=== PATIENT | male | born 2000 | race Caucasian/White ===

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

== ENCOUNTER 2021-01-12 12:57 | Emergency (ER) | payer OTHER ==
[~2021-01-12] VITALS: Ht 188 cm; Wt 72.7 kg
[2021-01-12 13:11] VITALS: BP 126/44
[2021-01-12] MEDS ORDERED: NALOXONE 0.4 MG/ML VIAL. ONE (13:22)
--- NOTE | 2021-01-12 13:32 | PHYS DOC ---
Past History Past Medical History: No Pertinent History Past Surgical History: No Surgical History Alcohol Use: None General Adult EDM: Chief Complaint: HEAD, FACE, NECK, TRAUMA HPI: HPI: Patient is a 20-year-old male who presents with abrasion to top of head and neck pain after a fall. Patient states he was running down some stairs at work and jumped to get to the bottom of the stairs. Patient states that when he jumped, he hit his head on ceiling. Patient states after he hit his head he fell backwards onto his butt. Denies loss of consciousness. Patient is reporting a headache and neck pain. Patient denies dizziness, nausea/vomiting. GCS of 15. Patient denies taking anything for pain prior to arrival. Patient denies being on blood thinners. Denies any health history. Up-to-date on immunizations. Review of Systems: Review of Systems: Constitutional: Denies fever or chills Eyes: Denies change in visual acuity HENT: Denies nasal congestion or sore throat Respiratory: Denies cough or shortness of breath Cardiovascular: Denies chest pain or edema GI: Denies abdominal pain, nausea, vomiting, bloody stools or diarrhea : Denies dysuria Musculoskeletal: Denies back pain, reports neck pain Integument: Abrasion to top of head Neurologic: Reports headache. Denies focal weakness or sensory changes Endocrine: Denies polyuria or polydipsia Lymphatic: Denies swollen glands Psychiatric: Denies depression or anxiety Current Medications: Current Meds: Current Medications Medications (Trade) Dose Ordered Sig/[facility] Start Time Stop Time Status Last Admin Dose Admin Naloxone HCl (Narcan) 0.4 mg STK-MED ONCE 01/12/21 13:22 01/12/21 13:23 DC Allergies: Allergies: Allergies Coded Allergies Type Severity Reaction Last Updated Verified No Known Drug Allergies 01/12/21 No Physical Exam: PE: Constitutional: Well developed, well nourished, no acute distress, non-toxic appearance. [] HENT: Normocephalic, atraumatic, bilateral external ears normal, oropharynx moist, no oral exudates, nose normal. [] Eyes: PERRLA, EOMI, conjunctiva normal, no discharge. [] Neck: Normal range of motion, right-sided tenderness Cardiovascular:Heart rate regular rhythm, no murmur [] Lungs & Thorax: Bilateral breath sounds clear to auscultation [] Abdomen: Bowel sounds normal, soft, no tenderness, no masses, no pulsatile masses. [] Skin: Warm, dry, no erythema, no rash. [] Back: No tenderness, no CVA tenderness. [] Extremities: No tenderness, no cyanosis, no clubbing, ROM intact, no edema. [] Neurologic: Alert and oriented X 3, normal motor function, normal sensory func tion, no focal deficits noted. [] Psychologic: Affect normal, judgement normal, mood normal. [] Current Patient Data: Vital Signs: Vital Signs Date Time Temp Pulse Resp B/P (MAP) Pulse Ox O2 Delivery O2 Flow Rate FiO2 01/12/21 13:11 97.5 66 18 126/44 (71) 97 Room Air EKG: EKG: [] Radiology/Procedures: Radiology/Procedures: []EXAM: CT Head without IV contrast INDICATION: Reason: hit head, fall / Spl. Instructions: / History: TECHNIQUE: Multi-detector row CT images were obtained of the head without the use of IV contrast. All CT scans performed at this facility utilize dose optimization techniques as appropriate to the exam, including the following: Automated exposure control and adjustment of the mA and/or KV according to patient size (this includes techniques or standardized protocols for targeted exams where dose is indication/reason for exam). COMPARISON: None FINDINGS: BRAIN PARENCHYMA: No evidence of acute intraparenchymal hemorrhage or infarct. No abnormal parenchymal density or mass. VENTRICLES & EXTRA-AXIAL SPACES: Ventricles are within normal limits. Basilar cisterns are patent. No pathologic extra-axial fluid collection or mass. ORBITS: Orbital contents are unremarkable. SINUSES: Visualized paranasal sinuses and mastoid air cells are clear. OSSEOUS & SOFT TISSUES: Calvarium and skull base are intact. IMPRESSION: Unremarkable CT of the head without contrast. EXAM: CT Cervical Spine without IV contrast INDICATION: Reason: hit head, fall / Spl. Instructions: / History: TECHNIQUE: Multi-detector row CT images were obtained through the cervical spine without the use of IV contrast. Post-processing sagittal and coronal reconstructed images were obtained for interpretation. All CT scans performed at this facility utilize dose optimization techniques as appropriate to the exam, including the following: Automated exposure control and adjustment of the mA and/or KV according to patient size (this includes techniques or standardized protocols for targeted exams where dose is indication/reason for exam). COMPARISON: None FINDINGS: CRANIOCERVICAL JUNCTION: Unremarkable. ALIGNMENT: Alignment is within normal limits. OSSEOUS: No evidence of fracture or bone destruction. DISC SPACES: Unremarkable. FACET JOINTS: Unremarkable. SPINAL CANAL: Unremarkable. NEUROFORAMINA: Unremarkable. SOFT TISSUES: Unremarkable. IMPRESSION: Normal CT of the cervical spine. Electronically signed by: Lynnette Winn MD (01/12/2021 1:52 PM) [id number] DICTATED AND SIGNED BY: LYNNETTE WINN MD DATE: 01/12/21 1347 CC: CASSIDY COTE MD; YANI SÁNCHEZE MEASURING MACHINE OPERATOR ~MTH0 0 Heart Score: C/O Chest Pain: No Risk Factors: Risk Factors: DM, Current or recent (<one month) smoker, HTN, HLP, family history of CAD, obesity. Risk Scores: Score 0 - 3: 2.5% MACE over next 6 weeks - Discharge Home Score 4 - 6: 20.3% MACE over next 6 weeks - Admit for Clinical Observation Score 7 - 10: 72.7% MACE over next 6 weeks - Early Invasive Strategies Course & Med Decision Making: Course & Med Decision Making Pertinent Labs and Imaging studies reviewed. (See chart for details) [] CT of head and neck ordered to rule out intercranial hemorrhage. GCS of 15. Patient is alert and orientated x4. Patient reporting headache and neck tenderness. Denies back pain. Denies loss of consciousness. Patient denying anything for pain at this time. Immunizations are up-to-date. CT of head and neck are negative for intracranial hemorrhage or fracture. Patient given instructions to return to the emergency room with worsening symptoms such as altered mental status, vomiting, increase in pain. Patient can take ibuprofen at home for discomfort. Patient's vitals are stable. GCS of 15 at discharge. Patient is ready to be discharged Dragon Disclaimer: Dragon Disclaimer: This electronic medical record was generated, in whole or in part, using a voice recognition dictation system. Departure Departure: Impression: Primary Impression: Head injury, acute, without loss of consciousness Qualified Codes: S09.90XA - Unspecified injury of head, initial encounter Disposition: 01 DC HOME SELF CARE/HOMELESS Condition: STABLE Referrals: CASSIDY COTE MD (PCP) Patient Instructions: Head Injury, Adult, [id number] Additional Instructions: You were seen in the emergency room for headache and neck pain after a fall at work today. The CT of your head and neck were both negative for any acute abnormalities. You can take ibuprofen at home for pain and use ice to areas of discomfort. Please return to the emergency room with worsening symptoms or c oncerns. Otherwise may follow-up with your PCP. EMERGENCY DEPARTMENT GENERAL DISCHARGE INSTRUCTIONS Thank you for coming to [facility] (ED) today and trusting us with you care. We trust that you had a positivie experience in our Emergency Department. If you wish to speak to the department management, you may call the director at [phone]. YOUR FOLLOW UP INSTRUCTIONS ARE FOLLOWS: 1. Do you have a private Doctor? If you do not have a private doctor, please ask for a resource list of physicians or clinics that may be able to assist you with follow up care. 2. The Emergency Physician has interpreted your x-rays. The X-Ray specialist will also review them. If there is a change in the findings, you will be notified in 48 hours when at all possible. 3. A lab test or culture has been done, your results will be reviewed and you will be notified if you need a change in treatment. ADDITIONAL INSTRUCTIONS AND INFORMATION: 1. Your care today has been supervised by a physician who is specially trained in emergency care. Many problems require more than one evaluation for a complete diagnosis and treatment. We recommend that you schedule your follow up appointment as recommended to ensure complete treatment of you illness or injury. If you are unable to obtain follow up care and continue to have a problem, or if your condition worsens, we recommend that you return to the ED. 2. We are not able to safely determine your condition over the phone nor are we able to give sound medical advice over the phone. For these safety reasons, if you call for medical advice we will ask you to come to the ED for further evaluation. 3. If you have any questions regarding these discharge instructions please call the ED at [phone]. SAFETY INFORMATION: In the interest of safety, wellness, and injury prevention; we encourage you to wear your sealbelt, if you smoke; quite smoking, and we encourage family to use a protective helmet for bicycling and other sporting events that present an increased risk for head injury. IF YOUR SYMPTOMS WORSEN OR NEW SYMPTOMS DEVELOP, OR YOU HAVE CONCERNS ABOUT YOUR CONDITION; OR IF YOUR CONDITION WORSENS WHILE YOU ARE WAITING FOR YOUR FOLLOW UP APPOINTMENT; EITHER CONTACT YOUR PRIMARY CARE DOCTOR, THE PHYSICIAN WHOSE NAME AND NUMBER YOU WERE GIVEN, OR RETURN TO THE ED IMMEDIATELY. MANOJ SÁNCHEZ APRN Jan 12, 2021 13:32
--- NOTE | 2021-01-12 13:55 | RAD ---
EXAM: CT Head without IV contrast INDICATION: Reason: hit head, fall / Spl. Instructions: / History: TECHNIQUE: Multi-detector row CT images were obtained of the head without the use of IV contrast. All CT scans performed at this facility utilize dose optimization techniques as appropriate to the exam, including the following: Automated exposure control and adjustment of the mA and/or KV according to patient size (this includes techniques or standardized protocols for targeted exams where dose is ind ication/reason for exam). COMPARISON: None FINDINGS: BRAIN PARENCHYMA: No evidence of acute intraparenchymal hemorrhage or infarct. No abnormal parenchyma l density or mass. VENTRICLES & EXTRA-AXIAL SPACES: Ventricles are within normal limits. Basilar cisterns are patent. N o pathologic extra-axial fluid collection or mass. ORBITS: Orbital contents are unremarkable. SINUSES: Visualized paranasal sinuses and mastoid air cells are clear. OSSEOUS & SOFT TISSUES: Calvarium and skull base are intact. IMPRESSION: Unremarkable CT of the head without contrast. EXAM: CT Cervical Spine without IV contrast INDICATION: Reason: hit head, fall / Spl. Instructions: / History: TECHNIQUE: Multi-detector row CT images were obtained through the cervical spine without the use of IV contrast. Post-processing sagittal and coronal reconstructed images were obtained for interpretati on. All CT scans performed at this facility utilize dose optimization techniques as appropriate to th e exam, including the following: Automated exposure control and adjustment of the mA and/or KV accord ing to patient size (this includes techniques or standardized protocols for targeted exams where dose is indication/reason for exam). COMPARISON: None FINDINGS: CRANIOCERVICAL JUNCTION: Unremarkable. ALIGNMENT: Alignment is within normal limits. OSSEOUS: No evidence of fracture or bone destruction. DISC SPACES: Unremarkable. FACET JOINTS: Unremarkable. SPINAL CANAL: Unremarkable. NEUROFORAMINA: Unremarkable. SOFT TISSUES: Unremarkable. IMPRESSION: Normal CT of the cervical spine. Electronically signed by: Lakesha Winn MD (01/12/2021 1:52 PM) [id number]
== END 2021-01-12 14:34 | disposition left against medical advice (07) ==
LOC: ER 12:57
DX: S00.01XA Abrasion of scalp, initial encounter (principal); W18.09XA Striking against other object with subsequent fall, initial encounter; Y93.02 Activity, running; Y92.89 Other specified places as the place of occurrence of the external cause; Y99.8 Other external cause status
CPT/HCPCS: 70450; 72125; 99285-25

== ENCOUNTER 2021-02-07 09:24 | Emergency (ER) | payer OTHER ==
[~2021-02-07] VITALS: Ht 188 cm; Wt 70.4 kg
--- NOTE | 2021-02-07 10:19 | RAD ---
EXAM: CHEST 2 VIEWS. HISTORY: Lymphadenopathy. COMPARISON: 11/27/2014. FINDINGS: Frontal and lateral views of the chest are obtained. There are no confluent infiltrates. There is no pneumothorax or pleural effusion. The heart is not en larged. The cardiomediastinal silhouette is unremarkable and stable. IMPRESSION: 1. No confluent infiltrates. No radiographic correlate for lymphadenopathy. CT is more sensitive if t here is persistent concern. Electronically signed by: Nhan Schultz MD (02/07/2021 10:17 AM) [facility]
[2021-02-07 10:38] LABS: BASO % 0 % (0-3); EOS % 1 % (0-3); HEMATOCRIT 49.1 % (39.0-53.0); HEMOGLOBIN 16.7 g/dL (13.0-17.5); LYMPH # 1.5 x10^3/uL (1.0-4.8); LYMPH % 18 % (24-48); MEAN CORPUSCULAR HEMOGLOBIN 31 pg (25-35); MEAN CORPUSCULAR HGB CONC 34 g/dL (31-37); MEAN CORPUSCULAR VOLUME 91 fL (79-100); MONO # 0.6 x10^3/uL (0.0-1.1); MONO % 8 % (0-9); NEUT # 5.8 x10^3uL (1.8-7.7); NEUT % 73 % (31-73); PLATELET COUNT 138 x10^3/uL (140-400); RED BLOOD COUNT 5.41 x10^6/uL (4.30-5.70)
[2021-02-07 10:48] LABS: MONONUCLEOSIS PATIENT POSITIVE (NEGATIVE)
--- NOTE | 2021-02-07 10:57 | PHYS DOC ---
Past History Past Medical History: No Pertinent History Past Surgical History: No Surgical History Alcohol Use: None Adult General Chief Complaint Chief Complaint: SORE THROAT HPI HPI Patient is a 20-year-old male who presents to the emergency room with multiple complaints. Patient is complaining of some neck swelling and pain. He states that he has been having groin swelling with lymphadenopathy in his groin for the last 2 months. Does primary care doctor for this who placed him on antibiotics. He did not take the antibiotics and lost them. He states he does not know what they were treating him for. He denies any penile discharge. He has had some mild fatigue but denies any kind of bruising. He denies any cough, fever, c hills, sweats. He is not having any difficulty with swallowing. Review of Systems Review of Systems Complete ROS is negative unless otherwise documented in HPI Allergies Allergies Allergies Coded Allergies Type Severity Reaction Last Updated Verified No Known Drug Allergies 01/12/21 No Physical Exam Physical Exam General: Awake, alert, NAD. Well Nourished, well hydrated. Cooperative HEENT: Atraumatic, EOMI, PERRL, airway patent, moist oral mucosa, minimal tonsillar swelling Neck: Supple, trachea midline, cervical lymphadenopathy Respiratory: CTA bilaterally, normal effort, no wheezing/crackles CV: RRR, no murmur, cap refill <2 GI: Soft, nondistended, nontender, no masses MSK: No obvious deformities Skin: Warm, dry, intact, no axillary lymphadenopathy Neuro: A&O x3, speech NL, sensory and motor grossly intact, no focal deficits Psych: Normal affect, normal mood, not suicidal or homicidal Current Patient Data Vital Signs Vital Signs Date Time Temp Pulse Resp B/P (MAP) Pulse Ox O2 Delivery O2 Flow Rate FiO2 02/07/21 09:34 97.7 82 16 119/80 (93) 99 Room Air Lab Results Laboratory Tests Test 02/07/21 10:12 White Blood Count 8.0 x10^3/uL (4.0-11.0) Red Blood Count 5.41 x10^6/uL (4.30-5.70) Hemoglobin 16.7 g/dL (13.0-17.5) Hematocrit 49.1 % (39.0-53.0) Mean Corpuscular Volume 91 fL (79-100) Mean Corpuscular Hemoglobin 31 pg (25-35) Mean Corpuscular Hemoglobin Concent 34 g/dL (31-37) Red Cell Distribution Width 14.0 % (11.5-14.5) Platelet Count 138 x10^3/uL (140-400) L Neutrophils (%) (Auto) 73 % (31-73) Lymphocytes (%) (Auto) 18 % (24-48) L Monocytes (%) (Auto) 8 % (0-9) Eosinophils (%) (Auto) 1 % (0-3) Basophils (%) (Auto) 0 % (0-3) Neutrophils # (Auto) 5.8 x10^3uL (1.8-7.7) Lymphocytes # (Auto) 1.5 x10^3/uL (1.0-4.8) Monocytes # (Auto) 0.6 x10^3/uL (0.0-1.1) Eosinophils # (Auto) 0.0 x10^3/uL (0.0-0.7) Basophils # (Auto) 0.0 x10^3/uL (0.0-0.2) Heterophil Agglutinins Positive (NEGATIVE) EKG EKG [] Radiology/Procedures Radiology/Procedures [] Heart Score C/O Chest Pain: N/A Risk Factors: Risk Factors: DM, Current or recent (<one month) smoker, HTN, HLP, family history of CAD, obesity. Risk Scores: Risk Factors: DM, Current or recent (<one month) smoker, HTN, HLP, family history of CAD, obesity. Course & Med Decision Making Course & Med Decision Making Pertinent Labs and Imaging studies reviewed. (See chart for details) Patient is a 20-year-old male who presents to the emergency room complaining of neck soreness and swelling. Patient does have cervical lymphadenopathy. He also has been having lymphadenopathy in his groin. It is possible that this could be due to 2 separate infections. Differential diagnosis includes gonorrhea/chlamydia, mono, lymphoma, viral infection. We will do a CBC to evaluate for any abnormalities that would be suggestive of mono or lymphoma. X- ray was done which does not show any obvious lymphadenopathy. CBC does not show any major abnormalities. Gonorrhea chlamydia was sent off and patient will be called with these results. A strep was negative. [place] test was positive. The symptoms are likely due to mono. I have discussed with him that he needs to follow-up in 2 weeks if symptoms have not resolved. We will place him on steroids. Patient's test results and vitals while in the ED were fully reviewed and discussed with the patient. Patient is stable and at this time does not need admission to the hospital. We have discussed strict return precautions and the importance of following up with their Primary Care Physician. Patient stated understanding and was given an opportunity to ask any questions. Patient is in agreement with plan. Dragon Disclaimer Dragon Disclaimer This electronic medical record was generated, in whole or in part, using a voice recognition dictation system. Departure Departure: Impression: Primary Impression: Mononucleosis Additional Impression: Lymphadenopathy Disposition: HOME / SELF CARE / HOMELESS Condition: STABLE Referrals: CASSIDY COTE MD (PCP) In 2 weeks Patient Instructions: Infectious Mononucleosis Scripts Methylprednisolone (MEDROL) 4 Mg Tab.ds.pk 1 PKG PO UD for mono, #1 PKG Prov: KRYSTA MOSES MD 02/07/21 Problem Qualifiers KRYSTA MOSES MD Feb 07, 2021 10:56
[2021-02-07] MEDS ORDERED: METH4TAB2 PO (11:19)
[2021-02-07 11:39] VITALS: BP 118/78
== END 2021-02-07 11:39 | disposition home or self-care (01) ==
LOC: ER 09:24
DX: B27.90 Infectious mononucleosis, unspecified without complication (principal); R59.1 Generalized enlarged lymph nodes
CPT/HCPCS: 36415; 71046; 85025; 86308; 87070; 87491; 87591; 87880; 99284

== ENCOUNTER 2021-02-11 10:18 | Emergency (ER) | payer OTHER ==
[~2021-02-11] VITALS: Ht 188 cm; Wt 67.8 kg
[~2021-02-11 10:18] MED LIST: METH4TAB2 PO
[2021-02-11 10:25] VITALS: BP 136/75
--- NOTE | 2021-02-11 11:22 | PHYS DOC ---
Past History Past Medical History: Anxiety, Bipolar, Depression Past Surgical History: No Surgical History Additional Smoking Information: 1/2 PACK Alcohol Use: None General Adult EDM: Chief Complaint: PSYCH EVALUATION HPI: HPI: Patient is a 20 M ever seen with mom for worsening psychiatric problems. Patient has a history of bipolar disorder but has been acting more aggressive. Has not had any acts of aggression towards people and denies any homicidal i deation, but did punch a wall. Has had passive suicidal thoughts without a plan to actually intent to harm himself. Patient has not been on his medications for approximately 4 months. Patient initially said he had not had not had any medication for an 18-month stating his been 4 months. Has a follow-up appointment with the [facility] for medication evaluation in 2 weeks. Was trying to cut his arm with his keys earlier which is why mom brought him in now. No history of suicide attempts. Denies any hallucinations Review of Systems: Review of Systems: Constitutional: Denies fever or chills Eyes: Denies change in visual acuity HENT: Denies nasal congestion or sore throat Respiratory: Denies cough or shortness of breath Cardiovascular: Denies chest pain or edema GI: Denies abdominal pain, nausea, vomiting, bloody stools or diarrhea : Denies dysuria Musculoskeletal: Denies back pain or joint pain Integument: Denies rash Neurologic: Denies headache, focal weakness or sensory changes Endocrine: Denies polyuria or polydipsia Lymphatic: Denies swollen glands Psychiatric: Denies depression or anxiety Allergies: Allergies: Allergies Coded Allergies Type Severity Reaction Last Updated Verified No Known Drug Allergies 01/12/21 No Physical Exam: PE: Constitutional: Well developed, well nourished, no acute distress, non-toxic appearance. [] HENT: Normocephalic, atraumatic, bilateral external ears normal, oropharynx moist, no oral exudates, nose normal. [] Eyes: PERRLA, EOMI, conjunctiva normal, no discharge. [] Neck: Normal range of motion, no tenderness, supple, no stridor. [] Cardiovascular:Heart rate regular rhythm, no murmur [] Lungs & Thorax: Bilateral breath sounds clear to auscultation [] Abdomen: Bowel sounds normal, soft, no tenderness, no masses, no pulsatile masses. [] Skin: Warm, dry, no erythema, no rash. [] Back: No tenderness, no CVA tenderness. [] Extremities: No tenderness, no cyanosis, no clubbing, ROM intact, no edema. [] Neurologic: Alert and oriented X 3, normal motor function, normal sensory function, no focal deficits noted. [] Psychologic: Affect normal, judgement normal, mood normal. [] Current Patient Data: Vital Signs: Vital Signs Date Time Temp Pulse Resp B/P (MAP) Pulse Ox O2 Delivery O2 Flow Rate FiO2 02/11/21 10:25 98.2 72 20 136/75 (95) 98 Room Air EKG: EKG: [] Radiology/Procedures: Radiology/Procedures: [] Heart Score: C/O Chest Pain: No Risk Factors: Risk Factors: DM, Current or recent (<one month) smoker, HTN, HLP, family history of CAD, obesity. Risk Scores: Score 0 - 3: 2.5% MACE over next 6 weeks - Discharge Home Score 4 - 6: 20.3% MACE over next 6 weeks - Admit for Clinical Observation Score 7 - 10: 72.7% MACE over next 6 weeks - Early Invasive Strategies Course & Med Decision Making: Course & Med Decision Making Pertinent Labs and Imaging studies reviewed. (See chart for details) PAT evaluation, patient accepted to [facility]. Pending transport at 1900 when a bed available. [] Dragon Disclaimer: Dragon Disclaimer: This electronic medical record was generated, in whole or in part, using a voice recognition dictation system. Departure Departure: Impression: Primary Impression: Suicidal thoughts Additional Impression: Nonadherence to medication [facility] Condition: STABLE Referrals: CASSIDY COTE MD (PCP) CRICKET SHORE MD Feb 11, 2021 11:22
[2021-02-11 11:37] LABS: BASO % 0 % (0-3); EOS % 1 % (0-3); HEMATOCRIT 45.4 % (39.0-53.0); HEMOGLOBIN 15.5 g/dL (13.0-17.5); LYMPH # 2.1 x10^3/uL (1.0-4.8); LYMPH % 29 % (24-48); MEAN CORPUSCULAR HEMOGLOBIN 31 pg (25-35); MEAN CORPUSCULAR HGB CONC 34 g/dL (31-37); MEAN CORPUSCULAR VOLUME 91 fL (79-100); MONO # 0.6 x10^3/uL (0.0-1.1); MONO % 8 % (0-9); NEUT # 4.5 x10^3uL (1.8-7.7); NEUT % 62 % (31-73); PLATELET COUNT 155 x10^3/uL (140-400); RED BLOOD COUNT 5.01 x10^6/uL (4.30-5.70); RED CELL DISTRIBUTION WIDTH 13.7 % (11.5-14.5); WHITE BLOOD COUNT 7.2 x10^3/uL (4.0-11.0)
[2021-02-11 11:45] LABS: BILIRUBIN,URINE NEG (NEG); CLARITY,URINE CLEAR; COLOR,URINE YELLOW; GLUCOSE,URINE NEG (NEG); NITRITE,URINE NEG (NEG)
[2021-02-11 11:49] LABS: BACTERIA,URINE FEW /HPF (0-FEW); RBC,URINE RARE /HPF (0-2)
[2021-02-11 11:49] LABS: CALCIUM 8.9 mg/dL (8.5-10.1); CREATININE 0.7 mg/dL (0.7-1.3); GFR 145.3; POTASSIUM 3.5 mmol/L (3.5-5.1)
[2021-02-11 11:50] LABS: SQUAMOUS EPITHELIAL CELL,UR OCC /LPF
[2021-02-11 11:52] LABS: SALIC < 2.8 mg/dL (2.8-20.0)
[2021-02-11 11:53] LABS: ACETAMIN < 2.0 mcg/mL (10-30); ETHANOL < 10 mg/dL (0-10)
[2021-02-11 11:55] LABS: ALBUMIN 3.9 g/dL (3.4-5.0); ALBUMIN/GLOBULIN RATIO 1.4 (1.0-1.7); MAGNESIUM 1.8 mg/dL (1.8-2.4); TOTAL PROTEIN 6.7 g/dL (6.4-8.2)
[2021-02-11 12:00] LABS: BARBITURATES NEG (NEG); BENZODIAZEPINES NEG (NEG); CANNABINOIDS POS (NEG); COCAINE NEG (NEG); METHADONE NEG (NEG); OPIATES NEG (NEG); PHENCYCLIDINE NEG (NEG)
[2021-02-11 12:01] LABS: AMPHETAMINE/METHAMPHETAMINE NEG (NEG)
[2021-02-11] MEDS ORDERED: hydrOXYzine HCL 25 MG TABLET PO PRN (14:00)
[2021-02-11] MEDS ORDERED: LORazepam 1 MG TABLET PO ONE (16:15)
== END 2021-02-11 20:25 ==
LOC: ER 10:18
DX: R45.851 Suicidal ideations (principal); Z91.14 Patient's other noncompliance with medication regimen; F41.9 Anxiety disorder, unspecified; F31.9 Bipolar disorder, unspecified; F17.200 Nicotine dependence, unspecified, uncomplicated; Z20.822 Contact with and (suspected) exposure to COVID-19
CPT/HCPCS: 36415; 80053; 80307; 80329; 81001; 83735; 85025; 87426; 99285; G0480; U0003

== ENCOUNTER 2021-04-03 14:31 | Emergency (ER) | payer OTHER ==
[~2021-04-03] VITALS: Ht 188 cm; Wt 68.0 kg
[2021-04-03] MEDS ORDERED: CHARCOAL AQUA 25 GM/120 ML SUSPENSION. PO ONE (14:45)
--- NOTE | 2021-04-03 14:53 | PHYS DOC ---
Past History Past Medical History: Anxiety, Bipolar, Depression Past Surgical History: No Surgical History Alcohol Use: None General Adult EDM: Chief Complaint: OVERDOSE HPI: HPI: 20-year-old male presents after taking a bottle of lamotrigine 25 mg tablets. The patient believes that he took 40 of them at 1345. His mom tells me that she filled the prescription for 60 about a week ago. The patient is only on 25 mg a day currently. He tells me that he took it because he was having a specific conflict with a girl. He immediately regretted it and states that he does not want to at this time. He regrets his attempt at suicide. Mom states that the patient has been doing impulsive findings lately as a result of this girl. Patient denies any complaints. Review of Systems: Review of Systems: Constitutional: Denies fever or chills Eyes: Denies change in visual acuity HENT: Denies nasal congestion or sore throat Respiratory: Denies cough or shortness of breath Cardiovascular: Denies chest pain or edema GI: Denies abdominal pain, nausea, vomiting, bloody stools or diarrhea : Denies dysuria Musculoskeletal: Denies back pain or joint pain Integument: Denies rash Neurologic: Denies headache, focal weakness or sensory changes Endocrine: Denies polyuria or polydipsia Lymphatic: Denies swollen glands Psychiatric: Impulsive Current Medications: Current Meds: Current Medications Medications (Trade) Dose Ordered Sig/Swati Start Time Stop Time Status Last Admin Dose Admin Charcoal (Actidose-Aqua) 25 gm 1X ONCE 04/03/21 14:45 04/03/21 14:47 DC 04/03/21 14:48 25 GM Allergies: Allergies: Allergies Coded Allergies Type Severity Reaction Last Updated Verified No Known Drug Allergies 01/12/21 No Physical Exam: PE: Constitutional: Well developed, well nourished, no acute distress, non-toxic appearance. [] HENT: Normocephalic, atraumatic, bilateral external ears normal, oropharynx moist, no oral exudates, nose normal. [] Eyes: PERRLA, EOMI, conjunctiva normal, no discharge. [] Neck: Normal range of motion, no tenderness, supple, no stridor. [] Cardiovascular: Heart rate regular rhythm, no murmur [] Lungs & Thorax: Bilateral breath sounds clear to auscultation [] Abdomen: Bowel sounds normal, soft, no tenderness, no masses, no pulsatile masses. [] Skin: Warm, dry, no erythema, no rash. [] Back: No tenderness, no CVA tenderness. [] Extremities: No tenderness, no cyanosis, no clubbing, ROM intact, no edema. [] Neurologic: Alert and oriented X 3, normal motor function, normal sensory function, no focal deficits noted. [] Psychologic: Affect normal, judgement questionable, mood normal. [] EKG: EKG: [] Radiology/Procedures: Radiology/Procedures: [] Heart Score: C/O Chest Pain: N/A Risk Factors: Risk Factors: DM, Current or recent (<one month) smoker, HTN, HLP, family history of CAD, obesity. Risk Scores: Score 0 - 3: 2.5% MACE over next 6 weeks - Discharge Home Score 4 - 6: 20.3% MACE over next 6 weeks - Admit for Clinical Observation Score 7 - 10: 72.7% MACE over next 6 weeks - Early Invasive Strategies Course & Med Decision Making: Course & Med Decision Making Pertinent Labs and Imaging studies reviewed. (See chart for details) The patient's labs are unremarkable. His urine drug screen is positive for marijuana. His other toxicology for acetaminophen and salicylates is negative. The patient has been observed for more than 4 hours since he took his medication. The peak for lamotrigine is 3 to 4 hours. He has had 0 symptoms since he has been here. I question whether not the patient really took the medication he states that he took. The patient has been evaluated by the PAT team and they have determined he can go home with family and a safety plan. He is stable for discharge at this time. [] Dragon Disclaimer: Dragon Disclaimer: This electronic medical record was generated, in whole or in part, using a voice recognition dictation system. Departure Departure: Impression: Primary Impression: Intentional drug overdose Qualified Codes: T50.902A - Poisoning by unspecified drugs, medicaments and biological substances, intentional self-harm, initial encounter Disposition: HOME / SELF CARE / HOMELESS Condition: STABLE Referrals: CASSIDY COTE MD (PCP) Patient Instructions: Suicidal Feelings, How to Help Yourself SAMMY PEREZ DO Apr 03, 2021 14:53
[2021-04-03 15:54] LABS: BARBITURATES NEG (NEG); BENZODIAZEPINES NEG (NEG); CANNABINOIDS POS (NEG); COCAINE NEG (NEG); METHADONE NEG (NEG); OPIATES NEG (NEG); PHENCYCLIDINE NEG (NEG)
[2021-04-03 15:59] LABS: AMPHETAMINE/METHAMPHETAMINE NEG (NEG)
[2021-04-03 16:00] LABS: ACETAMIN < 2.0 mcg/mL (10-30); SALIC < 2.8 mg/dL (2.8-20.0)
[2021-04-03 16:07] LABS: BILIRUBIN,URINE NEG (NEG); CLARITY,URINE CLEAR; COLOR,URINE YELLOW; GLUCOSE,URINE NEG (NEG); NITRITE,URINE NEG (NEG); UROBILINOGEN,URINE 0.2 mg/dL (0.2 mg/dL)
[2021-04-03 16:08] LABS: BACTERIA,URINE 0 /HPF (0-FEW); RBC,URINE RARE /HPF (0-2); SQUAMOUS EPITHELIAL CELL,UR OCC /LPF; WBC,URINE 0 /HPF (0-4)
--- NOTE | 2021-04-03 16:50 | EKG ---
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
[2021-04-03 17:45] VITALS: BP 129/64
--- NOTE | 2021-04-03 17:55 | EKG ---
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
== END 2021-04-03 17:50 | disposition home or self-care (01) ==
LOC: ER 14:31
DX: T42.6X2A Poisoning by other antiepileptic and sedative-hypnotic drugs, intentional self-harm, initial encounter (principal); F31.9 Bipolar disorder, unspecified; F41.9 Anxiety disorder, unspecified; Y92.9 Unspecified place or not applicable
CPT/HCPCS: 36415; 80307; 80329; 81001; 83735; 93005; 99285; G0480